=== PATIENT | male | born 1990 | race Caucasian/White ===

== ENCOUNTER 2021-04-03 00:24 | Emergency (ER) | payer OTHER ==
[2021-04-03 01:14] LABS: BASOPHIL 0.2 % (0-2); EOSINOPHIL 0.6 % (0-5); HCT 46.5 % (42.0-52.0); HGB 15.7 g/dl (13.2-18.0); MCH 31.2 pg (25.0-31.0); MCHC 33.8 g/dL (32.0-36.0); MCV 92.3 fL (78.0-100.0); MONOCYTE 14.2 % (0-12); MPV 10.5 fL (6.0-9.5); NEUTROPHIL 62.6 % (41-80); NRBC 0; PLT 246 K/uL (150-400); RBC 5.04 M/uL (4.70-6.00); RDW 12.3 % (11.5-14.0); WBC 9.4 K/uL (4.0-10.5)
[2021-04-03 01:15] LABS: BILIRUBIN NEGATIVE (NEGATIVE); BLOOD 2+ Ery/uL (NEGATIVE); CLARITY CLEAR (CLEAR); COLOR YELLOW (YELLOW); GLUCOSE (U) NORMAL (NORMAL); LEUKOCYTES NEGATIVE Leu/uL (NEGATIVE); NITRITE NEGATIVE (NEGATIVE); PROTEIN NEGATIVE (NEGATIVE); SPECIFIC GRAVITY <=1.005 (1.001-1.030); UROBILINOGEN 0.2 mg/dL (0.2-1.0); pH 5.5 (5.0-9.0)
[2021-04-03 01:19] LABS: SQUAMOUS EPITHELIAL CELLS RARE; URINARY RBC RARE
[2021-04-03 01:26] LABS: ALBUMIN 4.3 g/dL (3.4-5.0); BILIRUBIN - TOTAL 0.5 mg/dL (0.2-1.0); BUN/CREAT RATIO (CALC) 8.9 RATIO; CREATININE 1.01 mg/dL (0.67-1.17); GLOBULIN (CALCULATION) 3.9 g/dL; POTASSIUM 3.5 mmol/L (3.5-5.1); TOTAL PROTEIN 8.2 g/dL (6.4-8.2)
[2021-04-03 02:57] LABS: LACTIC ACID 1.1 mmol/L (0.4-1.9)
[2021-04-03] MEDS ORDERED: FLOMAX0.4 MG PO (04:28)
[2021-04-03] MEDS ORDERED: NORCO 5-325 TA1 EACH PO (04:28)
[2021-04-03] MEDS ORDERED: PHENERGAN25 M1 PO (04:28)
[2021-04-03 06:21] LABS: BILIRUBIN NEGATIVE (NEGATIVE); BLOOD 2+ Ery/uL (NEGATIVE); CLARITY CLEAR (CLEAR); COLOR YELLOW (YELLOW); GLUCOSE (U) NORMAL (NORMAL); LEUKOCYTES NEGATIVE Leu/uL (NEGATIVE); NITRITE NEGATIVE (NEGATIVE); PROTEIN NEGATIVE (NEGATIVE); SPECIFIC GRAVITY <=1.005 (1.001-1.030); UROBILINOGEN 0.2 mg/dL (0.2-1.0); pH 5.5 (5.0-9.0)
[2021-04-03 06:28] LABS: URINARY WBC RARE
[2021-04-03 06:29] LABS: SQUAMOUS EPITHELIAL CELLS RARE; URINARY RBC RARE
== END 2021-04-03 04:42 | disposition home or self-care (01) ==
LOC: FER 00:24
PROVIDERS: Emergency Medicine Emergency Medical Services
DX: N20.1 Calculus of ureter (principal); R19.7 Diarrhea, unspecified; I10 Essential (primary) hypertension
CPT/HCPCS: 36415; 80053; 81001; 82270; 83605; 83690; 85025; J1885; J2270; J2405; J7030; Q9967